=== PATIENT | female | born 1965 | race Hispanic/Latino ===

== ENCOUNTER → 2024-08-22 | Day surgery (SDC) | payer OTHER ==
[~2024-08-22] MED LIST: ALBUTEROL S2 MG/5 ML PO; BENICAR20 MG PO; GABAPENTIN300 MG PO; HYOSCYAMINE SULFATE 0.5 MG/ML INJ ONE; LIDOCAINE HCL 2% LOCAL INJ 5 ML SDV VIAL INJ ONE; LIPITOR10 MG PO; MIDAZOLAM HCL 2 MG/2 ML VIAL ONE; MYRBETRIQ50 MG PO; OMEPRAZOLE40 MG PO; PROPOFOL IV EMULSION 10 MG/ML 20 ML VIAL ONE
[2024-08-22] MEDS: LACTATED RINGER'S 1,000 ML ONE (08:30)
[2024-08-22 11:35] VITALS: BP 130/81; PULSE 80; RESP 16; O2SAT 96
== END | disposition home or self-care (01) ==
LOC: OR 07:45
PROVIDERS: ATTEND Internal Medicine Gastroenterology
DX: Z12.11 Encounter for screening for malignant neoplasm of colon (principal); D12.3 Benign neoplasm of transverse colon; D12.4 Benign neoplasm of descending colon; K31.7 Polyp of stomach and duodenum; K29.70 Gastritis, unspecified, without bleeding; K21.9 Gastro-esophageal reflux disease without esophagitis; K31.89 Other diseases of stomach and duodenum; K59.00 Constipation, unspecified; K44.9 Diaphragmatic hernia without obstruction or gangrene; K62.89 Other specified diseases of anus and rectum; K64.1 Second degree hemorrhoids; I10 Essential (primary) hypertension; E78.5 Hyperlipidemia, unspecified; I45.10 Unspecified right bundle-branch block; M06.9 Rheumatoid arthritis, unspecified; Z88.8 Allergy status to other drugs, medicaments and biological substances; Z01.810 Encounter for preprocedural cardiovascular examination; Z79.899 Other long term (current) drug therapy; Z85.3 Personal history of malignant neoplasm of breast; Z87.440 Personal history of urinary (tract) infections
CPT/HCPCS: 43239; 43251; 45384; 93005; J1980; J2003; J2250; J2704; J7121; 45378

== ENCOUNTER → 2024-11-13 | Outpatient (REF) | payer OTHER ==
[~2024-11-13] MED LIST changes: -HYOSCYAMINE SULFATE 0.5 MG/ML INJ ONE; -LIDOCAINE HCL 2% LOCAL INJ 5 ML SDV VIAL INJ ONE; -MIDAZOLAM HCL 2 MG/2 ML VIAL ONE; -PROPOFOL IV EMULSION 10 MG/ML 20 ML VIAL ONE
== END ==
LOC: MRI 14:27
PROVIDERS: ATTEND Psychiatry & Neurology Clinical Neurophysiology
DX: M54.12 Radiculopathy, cervical region (principal); Z85.3 Personal history of malignant neoplasm of breast
CPT/HCPCS: 72141